=== PATIENT | female | born 2000 | race Two or more races ===

== ENCOUNTER 2025-05-17 14:50 | Outpatient (CLI) | payer OTHER | END 2025-05-17 15:03 | disposition home or self-care (01) | LOC: PRENATAL 14:50 | PROVIDERS: ATTEND Obstetrics & Gynecology Maternal & Fetal Medicine | DX: O44.00 Complete placenta previa NOS or without hemorrhage, unspecified trimester (principal); Z3A.24 24 weeks gestation of pregnancy ==